=== PATIENT | female | born 1970 | race Caucasian/White ===

== ENCOUNTER 2023-06-22 12:08 | Emergency (ER) | payer MEDICAID ==
[~2023-06-22] VITALS: Ht 162.6 cm; Wt 54.2 kg
[2023-06-22 12:52] VITALS: BP 143/77; PULSE 73; RESP 18; TEMP 98.4; O2SAT 99
[2023-06-22] MEDS ORDERED: rabies immune globulin/PF 150 unit/ml inj IMVAC ONE (15:15)
[2023-06-22] MEDS ORDERED: rabies vaccine (PCEC)/PF 2.5 unit kit IMVAC ONE (15:15)
[2023-06-22] MEDS ORDERED: AMOX-419 PO (15:18)
== END 2023-06-22 16:10 | disposition home or self-care (01) ==
LOC: ER 12:09
DX: S61.431A Puncture wound without foreign body of right hand, initial encounter (principal); W55.51XA Bitten by raccoon, initial encounter; Z20.3 Contact with and (suspected) exposure to rabies; Y93.89 Activity, other specified; Y92.89 Other specified places as the place of occurrence of the external cause; Y99.8 Other external cause status
CPT/HCPCS: 90376; 90471; 90675; 96372; 99284

== ENCOUNTER 2023-06-26 10:03 | Emergency (ER) | payer MEDICAID ==
[~2023-06-26] VITALS: Ht 162.6 cm; Wt 47.6 kg
[~2023-06-26 10:03] MED LIST: AMOX-419 PO
[2023-06-26 10:11] VITALS: BP 139/83; PULSE 79; RESP 16; TEMP 98; O2SAT 99
[2023-06-26] MEDS ORDERED: rabies vaccine (PCEC)/PF 2.5 unit kit IMVAC ONE (10:45)
== END 2023-06-26 11:32 | disposition home or self-care (01) ==
LOC: ER 10:03
DX: Z23 Encounter for immunization (principal); Z88.1 Allergy status to other antibiotic agents; Z79.2 Long term (current) use of antibiotics; W55.51XD Bitten by raccoon, subsequent encounter
CPT/HCPCS: 90471; 90675; 99281

== ENCOUNTER 2023-06-29 20:28 | Emergency (ER) | payer MEDICAID ==
[~2023-06-29] VITALS: Ht 162.6 cm; Wt 49.4 kg
[2023-06-29 20:40] VITALS: BP 164/69; PULSE 80; RESP 18; TEMP 99.3; O2SAT 99
[2023-06-29] MEDS ORDERED: rabies vaccine (PCEC)/PF 2.5 unit kit IMVAC ONE (21:15)
== END 2023-06-29 21:47 | disposition home or self-care (01) ==
LOC: ER 20:29
DX: S51.831D Puncture wound without foreign body of right forearm, subsequent encounter (principal); Z20.3 Contact with and (suspected) exposure to rabies; W54.0XXD Bitten by dog, subsequent encounter
CPT/HCPCS: 90471; 90675; 99281

== ENCOUNTER 2023-07-07 18:05 | Emergency (ER) | payer MEDICAID ==
[~2023-07-07] VITALS: Ht 162.6 cm; Wt 55.3 kg
[2023-07-07 18:12] VITALS: BP 145/61; PULSE 77; RESP 16; TEMP 99.2; O2SAT 100
[2023-07-07] MEDS ORDERED: rabies vaccine (PCEC)/PF 2.5 unit kit IMVAC ONE (18:25)
[2023-07-07] MEDS ORDERED: ONDA4TAB12 PO (19:01)
== END 2023-07-07 19:14 | disposition home or self-care (01) ==
LOC: ER 18:06
DX: R11.0 Nausea (principal); Z20.3 Contact with and (suspected) exposure to rabies
CPT/HCPCS: 90471; 90675; 99283